=== PATIENT | female | born 1970 | race American Indian/Alaskan Native ===

== ENCOUNTER 2017-08-27 07:15 | Emergency (ER) | payer MEDICAID ==
[2017-08-27 07:21] VITALS: BP 144/97; PULSE 68; TEMP 97; O2SAT 100
[2017-08-27 07:22] VITALS: BMI 25.7
--- NOTE | 2017-08-27 07:40 | ED PDOC ---
HPI: Back Time Seen by Provider: 08/27/17 07:17 Chief Complaint (Nursing): Back Pain Chief Complaint (Provider): Lower back pain History Per: Patient History/Exam Limitations: no limitations Onset/Duration Of Symptoms: Days (1) Current Symptoms Are (Timing): Still Present Quality Of Discomfort: "Pain" Additional Complaint(s): 47yo female with past medical history of hypertension, asthma, presents to the ED for evaluation of lower back pain, present after she fell and landed on steps yesterday. She denies any weakness, numbness or paresthesias. No other medical complaints. Past Medical History Reviewed: Historical Data, Nursing Documentation, Vital Signs Vital Signs: Last Vital Signs Temp 97 F L 08/27/17 07:20 Pulse 68 08/27/17 07:20 Resp BP 144/97 H 08/27/17 07:20 Pulse Ox 100 08/27/17 07:20 - Medical History PMH: Asthma, Back Problems, HTN - Surgical History Surgical History: No Surg Hx - Family History Family History: States: No Known Family Hx - Home Medications Home Medications: Ambulatory Orders Medication Instructions Recorded traMADol [Ultram] 50 mg PO Q8 #10 tab 08/27/17 - Allergies Allergies/Adverse Reactions: Allergies Allergy/AdvReac Type Severity Reaction Status Date / Time No Known Allergies Allergy Verified 08/27/17 07:28 Review of Systems ROS Statement: Except As Marked, All Systems Reviewed And Found Negative Musculoskeletal: Positive for: Back Pain (lower back pain) Neurological: Negative for: Weakness, Numbness Physical Exam - Reviewed Nursing Documentation Reviewed: Yes Vital Signs Reviewed: Yes - Physical Exam Appears: Positive for: Non-toxic, No Acute Distress Skin: Positive for: Normal Color Neck: Positive for: Supple Cardiovascular/Chest: Positive for: Regular Rate, Rhythm Respiratory: Negative for: Respiratory Distress Back: Positive for: Other (tenderness to lower lumbar area, no deformity or ecchymosis noted.) Neurologic/Psych: Positive for: Alert, Oriented. Negative for: Motor/Sensory Deficits - ECG O2 Sat by Pulse Oximetry: 100 (RA) Pulse Ox Interpretation: Normal Medical Decision Making Medical Decision Making: Time: 731 Impression: Lower back pain status post fall Plan: -- XR Lumbar spine with Obliques -- [place] 30 mg IM Scribe Attestation: Documented by Jody John acting as a scribe for Lorenzo Stuart MD. Provider Attestation: All medical record entries made by the Scribe were at my direction and personally dictated by me. I have reviewed the chart and agree that the record accurately reflects my personal performance of the history, physical exam, medical decision making, and the department course for this patient. I have also personally directed, reviewed, and agree with the discharge instructions and disposition. Disposition - Clinical Impression Clinical Impression: Acute back pain - Patient ED Disposition Is Patient to be Admitted: No Counseled Patient/Family Regarding: Studies Performed, Diagnosis, Need For Followup, Rx Given - Disposition Referrals: [facility] [place] [Outside] [facility] [place] [Outside] Disposition: Routine/Home Disposition Time: 08:15 Condition: FAIR Prescriptions: traMADol [Ultram] 50 mg PO Q8 #10 tab Instructions: Acute Low Back Pain (ED) Forms: [employer] ([employer])
--- NOTE | 2017-08-27 10:09 | RAD ---
PROCEDURE: Lumbar spine dated 08/27/2017 HISTORY: Trauma. COMPARISON: No prior. FINDINGS: BONES: No acute compression fractures nor retropulsed fragments. Vertebral bodies exhibit normal stature. Vertebral bodies exhibit normally aligned. . Note made of elliptical shaped sclerotic density apparently located within the superomedial aspect right iliac bone. This could represent bone island or osteoma. Followup interval could be performed to assess stability. DISC SPACES: Disc space heights maintained. Small marginal anterolateral osteophyte formation seen at several levels. Facet joints are slightly overgrown at the L5-S1, L4-L5 and to a lesser degree L3-L4 levels. OTHER FINDINGS: Note made of IMPRESSION: No acute fractures. Very minor multilevel degenerative spondylosis. Small elliptical shaped sclerotic density right superomedial iliac wing of uncertain etiology though possibly representing bone island or osteoma. Followup studies at interval recommended to assess stability and exclude other infiltrative of bone lesion. . Note that this report was placed in PA review folder for followup
== END 2017-08-27 09:11 | disposition home or self-care (01) ==
LOC: H.ER 07:15
DX: M54.9 Dorsalgia, unspecified (principal); I10 Essential (primary) hypertension; J45.909 Unspecified asthma, uncomplicated
CPT/HCPCS: 72110; 96372; 99283; J1885

== ENCOUNTER 2017-09-05 06:44 | Emergency (ER) | payer MEDICAID ==
[2017-09-05 06:52] VITALS: BMI 27.3
[2017-09-05 06:55] VITALS: PULSE 61; TEMP 98.4; O2SAT 99
[2017-09-05 07:04] VITALS: BP 142/91; RESP 16
--- NOTE | 2017-09-05 07:52 | ED PDOC ---
HPI: Back Time Seen by Provider: 09/05/17 07:26 Chief Complaint (Nursing): Back Pain Chief Complaint (Provider): Chronic back pain History Per: Patient History/Exam Limitations: no limitations Onset/Duration Of Symptoms: Persistent (chronic pain) Current Symptoms Are (Timing): Still Present Quality Of Discomfort: "Pain" Previous Symptoms: Back Pain, Chronic Pain Associated Symptoms: None Additional Complaint(s): 47yo female, history of chronic back pain, presents to the ED for evaluation of lower back pain radiating to her left lower extremity. Patient states she was seen in this ED 9 days ago for similar symptoms and was given a prescription for Ultram; she states she has finished her prescribed course. Patient states she has a scheduled PMD appointment next week at [facility] (she is unsure of the name of her PMD) and is currently requesting medication to "hold me over". She denies any weakness, numbness, bladder or bowel dysfunction. She denies any other complaints. Past Medical History Reviewed: Historical Data, Nursing Documentation, Vital Signs Vital Signs: Last Vital Signs Temp 98.4 F 09/05/17 07:02 Pulse 61 09/05/17 07:02 Resp 16 09/05/17 07:02 BP 142/91 H 09/05/17 07:02 Pulse Ox 99 09/05/17 07:02 - Medical History PMH: Asthma, Back Problems, HTN - Surgical History Surgical History: No Surg Hx - Family History Family History: States: No Known Family Hx - Living Arrangements Living Arrangements: Other (homless, currently living at [facility]) - Home Medications Home Medications: Ambulatory Orders Medication Instructions Recorded Guaifenesin [Expectorant Cough 100 mg PO Q6 #1 liquid 08/27/17 Syrup] traMADol [Ultram] 50 mg PO Q8 #10 tab 08/27/17 - Allergies Allergies/Adverse Reactions: Allergies Allergy/AdvReac Type Severity Reaction Status Date / Time haloperidol [From Haldol] Allergy RASH Verified 09/05/17 07:05 Review of Systems ROS Statement: Except As Marked, All Systems Reviewed And Found Negative Genitourinary Female: Negative for: Frequency, Incontinence, Hematuria Musculoskeletal: Positive for: Back Pain (chronic lower back pain) Neurological: Negative for: Weakness, Numbness Physical Exam - Reviewed Nursing Documentation Reviewed: Yes Vital Signs Reviewed: Yes - Physical Exam Appears: Positive for: Non-toxic Skin: Positive for: Normal Color Eye Exam: Positive for: Normal appearance Neck: Positive for: Supple Cardiovascular/Chest: Positive for: Regular Rate, Rhythm Respiratory: Positive for: Normal Breath Sounds. Negative for: Respiratory Distress Back: Positive for: Other (lumbar paraspinal tenderness to palpation; history of chronic lower back pain). Negative for: L CVA Tenderness, R CVA Tenderness, Vertebral Tenderness Extremity: Positive for: Normal ROM. Negative for: Deformity, Swelling Neurologic/Psych: Positive for: Alert, Oriented. Negative for: Motor/Sensory Deficits - ECG O2 Sat by Pulse Oximetry: 99 (RA) Pulse Ox Interpretation: Normal Medical Decision Making Medical Decision Making: Time: 745 Impression: Plan: -- Tramadol 50 mg PO -- UPreg POC Reassess Time: 08 Patient refusing to give urine sample for UPreg Patient has elected to leave before completion of treatment. Scribe Attestation: Documented by Jody John acting as a scribe for Adis William MD. Provider Attestation: All medical record entries made by the Scribe were at my direction and personally dictated by me. I have reviewed the chart and agree that the record accurately reflects my personal performance of the history, physical exam, medical decision making, and the department course for this patient. I have also personally directed, reviewed, and agree with the discharge instructions and disposition. Disposition - Disposition Disposition: Left W/O Treatment Disposition Time: 08:00 Forms: [employer] (Russian)
== END 2017-09-05 08:10 | disposition left against medical advice (07) ==
LOC: H.ER 06:44
DX: M54.5 Low back pain (principal)